=== PATIENT | male | born 1935 | race Caucasian/White ===

== ENCOUNTER 2023-09-12 17:32 | Inpatient (IN) | payer MEDICARE, BC, OTHER ==
[~2023-09-12] VITALS: Ht 167.6 cm; Wt 87.5 kg
[2023-09-12] MEDS ORDERED: ACETAMINOPHEN 650 MG/SUPP.RECT RC ONE ×2 (18:30)
[2023-09-12] MEDS ORDERED: IV LR 1000 ML 1,000 ML BAG IV ONE (18:30)
[2023-09-12] MEDS ORDERED: PIPERACILLIN /TAZOBACTAM 3.375 G in IV D5W 50 ML IV ONE (18:30)
[2023-09-12] MEDS ORDERED: VANCOMYCIN 1 GM in IV D5W 250 ML IV ONE (18:30)
[2023-09-12 18:50] LABS: APPEARANCE,URINE TURBID (CLEAR); BILIRUBIN,URINE NEGATIVE (NEGATIVE); BLOOD, URINE 3+ Ery/uL (NEGATIVE); COLOR,URINE YELLOW (YELLOW); KETONES,URINE 1+ mg/dL (NEGATIVE); LEUKOCYTE ESTERASE ,URINE 2+ (NEGATIVE); NITRITE, URINE POSITIVE (NEGATIVE); PH,URINE 6.5 (5.0-8.0); PROTEIN,URINE 2+ mg/dl (NEGATIVE); UGLUCOSE NEGATIVE (NEGATIVE)
[2023-09-12 18:53] LABS: BASOPHILS % (AUTO) 0.2 % (0.0-2.0); EOSINOPHILS % (AUTO) 0.3 % (0.0-6.0); HEMATOCRIT 39 % (39-51); HEMOGLOBIN 12.4 g/dL (13.5-17.5); LYMPHOCYTES # (AUTO) 0.4 K/uL (0.8-4.8); LYMPHOCYTES % (AUTO) 3.6 % (20.0-44.0); MEAN CORPUSCULAR HEMOGLOBIN 28 PG (26.0-33.0); MEAN CORPUSCULAR HGB CONC 32 g/dl (31.0-36.0); MEAN CORPUSCULAR VOLUME 86 fL (80-96); MONOCYTES # (AUTO) 0.5 K/uL (0.1-1.30); MONOCYTES % (AUTO) 3.9 % (2.0-12.0); NEUTROPHILS # (AUTO) 10.9 K/uL (1.8-8.9); PLATELET COUNT (AUTO) 114 K/uL (150-450); RED BLOOD CELL COUNT(AUTO) 4.52 MIL/uL (4.5-6.0); RED CELL DISTRIBUTION WIDTH 27.2 % (11.5-15.0); WHITE BLOOD COUNT (AUTO) 11.8 K/uL (4.3-11.0)
[2023-09-12 19:03] LABS: CALCIUM, SERUM 8.7 mg/dL (8.5-10.1); CARBON DIOXIDE 21 mmol/L (21-32); CHLORIDE 107 mmol/L (98-107); CREATININE 1.2 mg/dL (0.6-1.3); GLUCOSE 147 mg/dL (74-106); POTASSIUM 4.3 mmol/L (3.5-5.1); SODIUM SERUM 138 mmol/L (136-145); UREA NITROGEN, BLOOD 21 mg/dL (7-18)
[2023-09-12 19:09] LABS: ALANINE AMINOTRANSFERASE 45 U/L (12-78); ALBUMIN 1.8 g/dL (3.4-5.0); ALKALINE PHOSPHATASE 189 U/L (46-116); ASPARTATE AMINOTRANSFERASE 86 U/L (15-37); BILIRUBIN,DIRECT 1.1 mg/dL (0.0-0.2); BILIRUBIN,TOTAL 2.1 mg/dL (0.2-1.0); TOTAL PROTEIN, SERUM 8.1 g/dL (6.4-8.2)
[2023-09-12 19:10] LABS: INR 1.63 (0.91-1.10); PARTIAL THROMBOPLASTIN TIME 39.3 SEC (24.3-34.3); PROTHROMBIN TIME 16.7 SECS (9.2-11.1)
[2023-09-12 19:28] LABS: LACTIC ACID 3.8 mmol/L (0.4-2.0)
[2023-09-12 19:53] LABS: ADD URINE CULTURE YES; BACTERIA,URINE 3+ /HPF (None Seen); MUCUS,URINE Many /LPF (None Seen); RBC,URINE TOO NUMEROUS TO COUN /HPF (0-2); SQUAMOUS EPITHELIAL CELL,UR None Seen /HPF (None Seen); WBC,URINE TOO NUMEROUS TO COUN /HPF (0-3)
[2023-09-12] MEDS ORDERED: IV LR 500 ML IV ONE (21:00)
[2023-09-12] MEDS ORDERED: MAGNESIUM HYDROXIDE 30 ML UDC PO PRN (22:00)
[2023-09-12] MEDS ORDERED: ONDANSETRON HCL/PF 4 MG/2 ML VIAL IVP PRN (22:00)
[2023-09-12] MEDS ORDERED: Z GUARD REMEDY 4 OZ OINT TP PRN (22:00)
[2023-09-12] MEDS ORDERED: ZOLPIDEM TARTRATE 5 MG TABLET PO PRN (22:00)
[2023-09-12] MEDS ORDERED: MAG HYDROX/AL HYDROX/SIMETH 30 ML UDC PO PRN (22:00)
[2023-09-12] MEDS ORDERED: PHENYLEPHRINE 10 MG/ML VIAL ONE (22:21)
[2023-09-12 23:30] VITALS: BP 76/50; O2SAT 97
[2023-09-12] MEDS: IV NS 0.9% 1,000 ML IV PRN (23:30)
[2023-09-12 23:39] VITALS: BP 84/52; O2SAT 97
[2023-09-12 23:42] VITALS: BP 86/53; O2SAT 98
[2023-09-12 23:45] VITALS: BP 86/54; O2SAT 97
[2023-09-12 23:48] VITALS: BP 88/55
[2023-09-12] MEDS: PHENYLEPHRINE 100 MG in IV NS 0.9% 240 ML IV PRN (23:48)
[2023-09-13] VITALS (92 sets, daily range): BP systolic 93–131; BP diastolic 50–83; TEMP 97.1–97.9; O2SAT 82–100
[2023-09-13] MEDS ORDERED: PIPERACILLIN /TAZOBACTAM 3.375 G in IV D5W 50 ML IV SCH ×2 (02:00→08:00)
[2023-09-13] MEDS ORDERED: PIPERACI/TAZO 3.375GM/D5W 50ML PB IV ONE (02:04)
[2023-09-13 05:36] LABS: BASOPHILS % (AUTO) 0.1 % (0.0-2.0); HEMATOCRIT 35 % (39-51); HEMOGLOBIN 11.2 g/dL (13.5-17.5); LYMPHOCYTES # (AUTO) 0.5 K/uL (0.8-4.8); LYMPHOCYTES % (AUTO) 2.5 % (20.0-44.0); MEAN CORPUSCULAR HEMOGLOBIN 28 PG (26.0-33.0); MEAN CORPUSCULAR HGB CONC 32 g/dl (31.0-36.0); MEAN CORPUSCULAR VOLUME 87 fL (80-96); MONOCYTES % (AUTO) 9.5 % (2.0-12.0); NEUTROPHILS # (AUTO) 18.3 K/uL (1.8-8.9); NEUTROPHILS % (AUTO) 87.9 % (43.0-81.0); PLATELET COUNT (AUTO) 107 K/uL (150-450); RED BLOOD CELL COUNT(AUTO) 4.04 MIL/uL (4.5-6.0); RED CELL DISTRIBUTION WIDTH 27.4 % (11.5-15.0); WHITE BLOOD COUNT (AUTO) 20.8 K/uL (4.3-11.0)
[2023-09-13 06:05] LABS: BAND % (MANUAL) 7 % (0.0-5.0); CALCIUM, SERUM 8.3 mg/dL (8.5-10.1); LYMPHOCYTES % (MANUAL) 4 % (16-48); MONOCYTES % (MANUAL) 6 % (0-11.0); NEUTROPHILS % (MANUAL) 83 (42-76); PHOSPHORUS 2.9 mg/dL (2.5-4.9); PLATELET ESTIMATE DECREASED; POTASSIUM 3.3 mmol/L (3.5-5.1)
[2023-09-13 06:06] LABS: ANISOCYTOSIS 1+; OVALOCYTES 1+
[2023-09-13] MEDS ORDERED: DIVA500T2 PO (06:27)
[2023-09-13] MEDS ORDERED: FURO-145 PO (06:27)
[2023-09-13] MEDS ORDERED: HALO2TAB PO (06:27)
[2023-09-13] MEDS ORDERED: METO25TA3 PO (06:27)
[2023-09-13] MEDS ORDERED: ASPI-1169 PO (06:27)
[2023-09-13] MEDS ORDERED: PANT40TA49 PO (06:27)
[2023-09-13] MEDS ORDERED: SENN1TAB6 PO (06:27)
[2023-09-13] MEDS ORDERED: ATOR10TA PO (06:27)
[2023-09-13] MEDS: IV NS 0.9% 1,000 ML IV PRN ×2 (10:02→20:35)
[2023-09-13] MEDS: PIPERACILLIN /TAZOBACTAM 3.375 G in IV D5W 100 ML IV SCH ×2 (10:49→20:36)
[2023-09-13] MEDS ORDERED: POTASSIUM CHLORIDE 20 MEQ TAB.PRT.SR PO SCH (11:00)
[2023-09-13] MEDS: ASPIRIN 81 MG TAB.CHEW PO SCH (13:35)
[2023-09-13] MEDS ORDERED: VANCOMYCIN HCL 0.75 GM in IV D5W 250 ML IV SCH (19:00)
[2023-09-14] VITALS (96 sets, daily range): BP systolic 88–135; BP diastolic 49–100; TEMP 98–98.7; O2SAT 95–99
[2023-09-14] MEDS: PHENYLEPHRINE 100 MG in IV NS 0.9% 240 ML IV PRN (03:01)
[2023-09-14 05:10] LABS: CALCIUM, SERUM 8.2 mg/dL (8.5-10.1); CREATININE 0.7 mg/dL (0.6-1.3); POTASSIUM 4.4 mmol/L (3.5-5.1)
[2023-09-14] MEDS: IV NS 0.9% 1,000 ML IV PRN ×2 (06:17→17:13)
[2023-09-14] MEDS: PIPERACILLIN /TAZOBACTAM 3.375 G in IV D5W 100 ML IV SCH ×2 (10:02→20:09)
[2023-09-14] MEDS: ASPIRIN 81 MG TAB.CHEW PO SCH (10:02)
[2023-09-14 14:59] LABS: HIV-1 p24 ANTIGEN NON REACTIVE (NONREACTIVE); HIV-1/2 ANTIBODY NON REACTIVE (NONREACTIVE)
[2023-09-14 15:40] LABS: BASOPHILS % (AUTO) 0.2 % (0.0-2.0); EOSINOPHILS # (AUTO) 0.1 K/uL (0.0-0.7); EOSINOPHILS % (AUTO) 0.4 % (0.0-6.0); HEMATOCRIT 41 % (39-51); HEMOGLOBIN 12.2 g/dL (13.5-17.5); LYMPHOCYTES # (AUTO) 1.1 K/uL (0.8-4.8); LYMPHOCYTES % (AUTO) 7.3 % (20.0-44.0); MEAN CORPUSCULAR HEMOGLOBIN 28 PG (26.0-33.0); MEAN CORPUSCULAR HGB CONC 30 g/dl (31.0-36.0); MEAN CORPUSCULAR VOLUME 92 fL (80-96); MONOCYTES # (AUTO) 2.1 K/uL (0.1-1.30); MONOCYTES % (AUTO) 13.6 % (2.0-12.0); NEUTROPHILS # (AUTO) 12.1 K/uL (1.8-8.9); NEUTROPHILS % (AUTO) 78.5 % (43.0-81.0); PLATELET COUNT (AUTO) 89 K/uL (150-450); RED BLOOD CELL COUNT(AUTO) 4.41 MIL/uL (4.5-6.0); RED CELL DISTRIBUTION WIDTH 28.2 % (11.5-15.0); WHITE BLOOD COUNT (AUTO) 15.4 K/uL (4.3-11.0)
[2023-09-14 15:48] LABS: CREATININE, URINE 92.3 MG/DL (30.0-125.0); URINE TOTAL PROTEIN 71.9 mg/dL (0-11.9)
[2023-09-14 15:52] LABS: APPEARANCE,URINE CLOUDY (CLEAR); BILIRUBIN,URINE 1+ (NEGATIVE); BLOOD, URINE 3+ Ery/uL (NEGATIVE); COLOR,URINE YELLOW (YELLOW); KETONES,URINE NEGATIVE (NEGATIVE); LEUKOCYTE ESTERASE ,URINE 2+ (NEGATIVE); NITRITE, URINE POSITIVE (NEGATIVE); PH,URINE 5.5 (5.0-8.0); PROTEIN,URINE 1+ mg/dl (NEGATIVE); UGLUCOSE NEGATIVE (NEGATIVE)
[2023-09-14 16:26] LABS: ADD URINE CULTURE YES; BACTERIA,URINE 3+ /HPF (None Seen); MUCUS,URINE Many /LPF (None Seen); RBC,URINE 51-80 /HPF (0-2); SQUAMOUS EPITHELIAL CELL,UR 0-2 /HPF (None Seen); WBC,URINE 21-50 /HPF (0-3)
[2023-09-14 16:35] LABS: EOSINOPHIL,URINE None Seen
[2023-09-14] MEDS: SENNOSIDES/DOCUSATE SODIUM 1 TAB TABLET PO SCH (17:13)
[2023-09-14] MEDS: DIVALPROEX SODIUM 500 MG TABLET.DR PO SCH (17:14)
[2023-09-14] MEDS: ATORVASTATIN 10 MG TABLET PO SCH (17:14)
[2023-09-14] MEDS: VANCOMYCIN 1 GM in IV D5W 250ml IV SCH (17:14)
[2023-09-14] MEDS: PROSOURCE / PROSTAT (PYXIS) 30 ML UDC PO SCH ×2 (17:14→17:15)
[2023-09-14] MEDS: MUPIROCIN OINT 2% 22 GM TUBE NS SCH (20:09)
[2023-09-14 23:20] LABS: BAND % (MANUAL) 9 % (0.0-5.0); LYMPHOCYTES % (MANUAL) 10 % (16-48); NEUTROPHILS % (MANUAL) 68 (42-76)
[2023-09-14 23:21] LABS: ANISOCYTOSIS 1+; BASOPHILS % (MANUAL) 0 % (0.0-2.0); EOSINOPHILS % (MANUAL) 0 % (0-4); MONOCYTES % (MANUAL) 13 % (0-11.0); OVALOCYTES 1+; PLATELET ESTIMATE DECREASED
[2023-09-15] VITALS (96 sets, daily range): BP systolic 76–155; BP diastolic 49–91; TEMP 97.5–98.1; O2SAT 92–99
[2023-09-15] MEDS: IV NS 0.9% 1,000 ML IV PRN ×2 (03:38→13:28)
[2023-09-15 04:51] LABS: CREATININE 0.8 mg/dL (0.6-1.3); POTASSIUM 3.5 mmol/L (3.5-5.1)
[2023-09-15] MEDS: PIPERACILLIN /TAZOBACTAM 3.375 G in IV D5W 100 ML IV SCH ×2 (05:00→12:33)
[2023-09-15] MEDS: ASPIRIN 81 MG TAB.CHEW PO SCH (08:50)
[2023-09-15] MEDS: PROSOURCE / PROSTAT (PYXIS) 30 ML UDC PO SCH ×3 (08:50→17:49)
[2023-09-15] MEDS: DIVALPROEX SODIUM 500 MG TABLET.DR PO SCH ×2 (08:50→17:49)
[2023-09-15] MEDS: SENNOSIDES/DOCUSATE SODIUM 1 TAB TABLET PO SCH ×2 (08:50→17:49)
[2023-09-15] MEDS: PANTOPRAZOLE 40 MG TABLET.DR PO SCH (08:50)
[2023-09-15] MEDS: MUPIROCIN OINT 2% 22 GM TUBE NS SCH ×2 (08:51→21:20)
[2023-09-15] MEDS ORDERED: METOPROLOL SUCCINATE 25 MG TAB.SR.24H PO SCH (09:00)
[2023-09-15] MEDS ORDERED: ASPIRIN 81 MG TAB.CHEW PO SCH (09:00)
[2023-09-15] MEDS: BACITRACIN ZINC OINT (15 GM) 15 GM TUBE TP SCH ×2 (09:10→17:46)
[2023-09-15] MEDS: PHENYLEPHRINE 100 MG in IV NS 0.9% 240 ML IV PRN (12:15)
[2023-09-15] MEDS: ATORVASTATIN 10 MG TABLET PO SCH (18:08)
[2023-09-15] MEDS: VANCOMYCIN 1 GM in IV D5W 250ml IV SCH (19:40)
[2023-09-15] MEDS: IV NS 0.9% 250 ML IV PRN (20:43)
[2023-09-16] VITALS (90 sets, daily range): BP systolic 88–125; BP diastolic 53–90; TEMP 97.5–98.6; O2SAT 95–99
[2023-09-16] MEDS: IV NS 0.9% 1,000 ML IV PRN ×3 (00:04→21:36)
[2023-09-16 04:16] LABS: CALCIUM, SERUM 7.9 mg/dL (8.5-10.1); CREATININE 0.7 mg/dL (0.6-1.3); POTASSIUM 3.7 mmol/L (3.5-5.1)
[2023-09-16] MEDS: VANCOMYCIN HCL 0.75 GM in IV D5W 250 ML IV SCH ×2 (06:33→17:20)
[2023-09-16] MEDS: PROSOURCE / PROSTAT (PYXIS) 30 ML UDC PO SCH ×3 (08:00→17:18)
[2023-09-16] MEDS: PANTOPRAZOLE 40 MG TABLET.DR PO SCH (08:28)
[2023-09-16] MEDS: SENNOSIDES/DOCUSATE SODIUM 1 TAB TABLET PO SCH ×2 (08:28→17:18)
[2023-09-16] MEDS: ASPIRIN 81 MG TAB.CHEW PO SCH (08:28)
[2023-09-16] MEDS: DIVALPROEX SODIUM 500 MG TABLET.DR PO SCH ×2 (08:28→17:18)
[2023-09-16] MEDS: MUPIROCIN OINT 2% 22 GM TUBE NS SCH ×2 (09:13→21:44)
[2023-09-16] MEDS: BACITRACIN ZINC OINT (15 GM) 15 GM TUBE TP SCH ×4 (09:13→21:38)
[2023-09-16] MEDS: PHENYLEPHRINE 100 MG in IV NS 0.9% 240 ML IV PRN (09:15)
[2023-09-16 09:34] LABS: BASOPHILS # (AUTO) 0.1 K/uL (0.0-0.2); BASOPHILS % (AUTO) 0.5 % (0.0-2.0); EOSINOPHILS # (AUTO) 0.1 K/uL (0.0-0.7); EOSINOPHILS % (AUTO) 0.6 % (0.0-6.0); HEMATOCRIT 35 % (39-51); LYMPHOCYTES # (AUTO) 1.6 K/uL (0.8-4.8); LYMPHOCYTES % (AUTO) 12.5 % (20.0-44.0); MEAN CORPUSCULAR HEMOGLOBIN 27 PG (26.0-33.0); MEAN CORPUSCULAR HGB CONC 31 g/dl (31.0-36.0); MEAN CORPUSCULAR VOLUME 86 fL (80-96); MONOCYTES # (AUTO) 1.1 K/uL (0.1-1.30); MONOCYTES % (AUTO) 8.8 % (2.0-12.0); NEUTROPHILS % (AUTO) 77.6 % (43.0-81.0); PLATELET COUNT (AUTO) 89 K/uL (150-450); RED BLOOD CELL COUNT(AUTO) 4.07 MIL/uL (4.5-6.0); RED CELL DISTRIBUTION WIDTH 27.1 % (11.5-15.0); WHITE BLOOD COUNT (AUTO) 12.9 K/uL (4.3-11.0)
[2023-09-16 09:37] LABS: CREATININE 0.7 mg/dL (0.6-1.3); POTASSIUM 3.6 mmol/L (3.5-5.1)
[2023-09-16 09:43] LABS: TOTAL PROTEIN, SERUM 6.1 g/dL (6.4-8.2)
[2023-09-16 09:51] LABS: ALBUMIN 1.2 g/dL (3.4-5.0)
[2023-09-16 15:32] LABS: LYMPHOCYTES % (MANUAL) 12 % (16-48); MONOCYTES % (MANUAL) 2 % (0-11.0); MYELOCYTES % 4 % (0-0); NEUTROPHILS % (MANUAL) 82 (42-76); PLATELET ESTIMATE DECREASED
[2023-09-16 15:33] LABS: ANISOCYTOSIS 1+; OVALOCYTES 1+
[2023-09-16] MEDS: ATORVASTATIN 10 MG TABLET PO SCH (17:18)
[2023-09-17] VITALS (86 sets, daily range): BP systolic 87–177; BP diastolic 29–154; TEMP 97–98.2; O2SAT 95–99
[2023-09-17 06:27] LABS: BASOPHILS # (AUTO) 0.1 K/uL (0.0-0.2); BASOPHILS % (AUTO) 0.5 % (0.0-2.0); EOSINOPHILS # (AUTO) 0.1 K/uL (0.0-0.7); EOSINOPHILS % (AUTO) 0.6 % (0.0-6.0); HEMATOCRIT 39 % (39-51); HEMOGLOBIN 12.1 g/dL (13.5-17.5); LYMPHOCYTES # (AUTO) 1.4 K/uL (0.8-4.8); LYMPHOCYTES % (AUTO) 12.7 % (20.0-44.0); MEAN CORPUSCULAR HEMOGLOBIN 27 PG (26.0-33.0); MEAN CORPUSCULAR HGB CONC 31 g/dl (31.0-36.0); MEAN CORPUSCULAR VOLUME 87 fL (80-96); MONOCYTES # (AUTO) 0.9 K/uL (0.1-1.30); MONOCYTES % (AUTO) 8.4 % (2.0-12.0); NEUTROPHILS # (AUTO) 8.6 K/uL (1.8-8.9); NEUTROPHILS % (AUTO) 77.8 % (43.0-81.0); PLATELET COUNT (AUTO) 114 K/uL (150-450); RED BLOOD CELL COUNT(AUTO) 4.47 MIL/uL (4.5-6.0); RED CELL DISTRIBUTION WIDTH 27.1 % (11.5-15.0); WHITE BLOOD COUNT (AUTO) 11.1 K/uL (4.3-11.0)
[2023-09-17 06:50] LABS: BILIRUBIN,TOTAL 1.1 mg/dL (0.2-1.0); CALCIUM, SERUM 8.2 mg/dL (8.5-10.1); CREATININE 0.7 mg/dL (0.6-1.3); POTASSIUM 3.9 mmol/L (3.5-5.1); TOTAL PROTEIN, SERUM 6.6 g/dL (6.4-8.2)
[2023-09-17 06:54] LABS: ALBUMIN 1.2 g/dL (3.4-5.0)
[2023-09-17] MEDS: VANCOMYCIN HCL 0.75 GM in IV D5W 250 ML IV SCH (07:14)
[2023-09-17] MEDS: PROSOURCE / PROSTAT (PYXIS) 30 ML UDC PO SCH ×3 (08:41→17:33)
[2023-09-17] MEDS: ASPIRIN 81 MG TAB.CHEW PO SCH (08:42)
[2023-09-17] MEDS: MUPIROCIN OINT 2% 22 GM TUBE NS SCH ×2 (08:42→20:44)
[2023-09-17] MEDS: DIVALPROEX SODIUM 500 MG TABLET.DR PO SCH ×2 (08:42→17:33)
[2023-09-17] MEDS: PANTOPRAZOLE 40 MG TABLET.DR PO SCH (08:42)
[2023-09-17] MEDS: SENNOSIDES/DOCUSATE SODIUM 1 TAB TABLET PO SCH ×2 (08:42→17:33)
[2023-09-17] MEDS: IV NS 0.9% 250 ML IV PRN (09:14)
[2023-09-17] MEDS: IV NS 0.9% 1,000 ML IV PRN ×2 (09:14→20:44)
[2023-09-17] MEDS: PHENYLEPHRINE 100 MG in IV NS 0.9% 240 ML IV PRN (09:42)
[2023-09-17] MEDS: ATORVASTATIN 10 MG TABLET PO SCH (17:33)
[2023-09-17] MEDS: VANCOMYCIN 500 MG in IV D5W 100ml IV SCH (17:34)
[2023-09-18] VITALS (79 sets, daily range): BP systolic 87–163; BP diastolic 46–98; TEMP 97.5–98.4; O2SAT 93–99
[2023-09-18 04:34] LABS: BASOPHILS # (AUTO) 0.1 K/uL (0.0-0.2); BASOPHILS % (AUTO) 0.6 % (0.0-2.0); EOSINOPHILS # (AUTO) 0.1 K/uL (0.0-0.7); EOSINOPHILS % (AUTO) 1.3 % (0.0-6.0); HEMATOCRIT 35 % (39-51); HEMOGLOBIN 11.5 g/dL (13.5-17.5); LYMPHOCYTES # (AUTO) 1.2 K/uL (0.8-4.8); LYMPHOCYTES % (AUTO) 14.1 % (20.0-44.0); MEAN CORPUSCULAR HEMOGLOBIN 28 PG (26.0-33.0); MEAN CORPUSCULAR HGB CONC 33 g/dl (31.0-36.0); MEAN CORPUSCULAR VOLUME 85 fL (80-96); MONOCYTES # (AUTO) 0.7 K/uL (0.1-1.30); MONOCYTES % (AUTO) 8.5 % (2.0-12.0); NEUTROPHILS # (AUTO) 6.5 K/uL (1.8-8.9); NEUTROPHILS % (AUTO) 75.5 % (43.0-81.0); PLATELET COUNT (AUTO) 116 K/uL (150-450); RED BLOOD CELL COUNT(AUTO) 4.13 MIL/uL (4.5-6.0); RED CELL DISTRIBUTION WIDTH 26.8 % (11.5-15.0); WHITE BLOOD COUNT (AUTO) 8.7 K/uL (4.3-11.0)
[2023-09-18 05:22] LABS: CALCIUM, SERUM 8.1 mg/dL (8.5-10.1); CREATININE 0.7 mg/dL (0.6-1.3); POTASSIUM 3.6 mmol/L (3.5-5.1)
[2023-09-18 05:28] LABS: BILIRUBIN,TOTAL 0.8 mg/dL (0.2-1.0); TOTAL PROTEIN, SERUM 6.3 g/dL (6.4-8.2)
[2023-09-18 05:35] LABS: ALBUMIN 1.2 g/dL (3.4-5.0)
[2023-09-18] MEDS: VANCOMYCIN 500 MG in IV D5W 100ml IV SCH ×2 (05:59→18:07)
[2023-09-18] MEDS: IV NS 0.9% 1,000 ML IV PRN ×2 (06:02→16:18)
[2023-09-18] MEDS: SENNOSIDES/DOCUSATE SODIUM 1 TAB TABLET PO SCH ×2 (08:09→18:07)
[2023-09-18] MEDS: ASPIRIN 81 MG TAB.CHEW PO SCH (08:09)
[2023-09-18] MEDS: PROSOURCE / PROSTAT (PYXIS) 30 ML UDC PO SCH ×3 (08:09→17:00)
[2023-09-18] MEDS: DIVALPROEX SODIUM 500 MG TABLET.DR PO SCH ×2 (08:09→18:07)
[2023-09-18] MEDS: PANTOPRAZOLE 40 MG TABLET.DR PO SCH (08:09)
[2023-09-18] MEDS: BACITRACIN ZINC OINT (15 GM) 15 GM TUBE TP SCH ×2 (08:10→17:00)
[2023-09-18] MEDS: MUPIROCIN OINT 2% 22 GM TUBE NS SCH ×2 (08:10→21:28)
[2023-09-18] MEDS ORDERED: MIDODRINE HCL (5MG) 5 MG TABLET PO SCH (13:00)
[2023-09-18] MEDS: ATORVASTATIN 10 MG TABLET PO SCH (18:07)
[2023-09-18] MEDS: PHENYLEPHRINE 100 MG in IV NS 0.9% 240 ML IV PRN (18:08)
[2023-09-18] MEDS: MIDODRINE HCL (5MG) 5 MG TABLET PO SCH (21:00)
[2023-09-19] VITALS (74 sets, daily range): BP systolic 95–139; BP diastolic 56–92; TEMP 97.1–97.7; O2SAT 93–100
[2023-09-19] MEDS: IV NS 0.9% 1,000 ML IV PRN ×3 (00:38→20:15)
[2023-09-19] MEDS: MIDODRINE HCL (5MG) 5 MG TABLET PO SCH ×3 (05:22→20:38)
[2023-09-19 05:23] LABS: BASOPHILS % (AUTO) 0.3 % (0.0-2.0); EOSINOPHILS % (AUTO) 0.4 % (0.0-6.0); HEMATOCRIT 37 % (39-51); HEMOGLOBIN 11.9 g/dL (13.5-17.5); LYMPHOCYTES # (AUTO) 0.8 K/uL (0.8-4.8); LYMPHOCYTES % (AUTO) 8.6 % (20.0-44.0); MEAN CORPUSCULAR HEMOGLOBIN 28 PG (26.0-33.0); MEAN CORPUSCULAR HGB CONC 32 g/dl (31.0-36.0); MEAN CORPUSCULAR VOLUME 86 fL (80-96); MONOCYTES # (AUTO) 0.6 K/uL (0.1-1.30); MONOCYTES % (AUTO) 6.8 % (2.0-12.0); NEUTROPHILS # (AUTO) 7.6 K/uL (1.8-8.9); NEUTROPHILS % (AUTO) 83.9 % (43.0-81.0); PLATELET COUNT (AUTO) 114 K/uL (150-450); RED BLOOD CELL COUNT(AUTO) 4.28 MIL/uL (4.5-6.0); RED CELL DISTRIBUTION WIDTH 27.1 % (11.5-15.0)
[2023-09-19 05:44] LABS: BILIRUBIN,TOTAL 0.9 mg/dL (0.2-1.0); CALCIUM, SERUM 7.9 mg/dL (8.5-10.1); CREATININE 0.8 mg/dL (0.6-1.3); POTASSIUM 3.8 mmol/L (3.5-5.1); TOTAL PROTEIN, SERUM 6.8 g/dL (6.4-8.2)
[2023-09-19 05:54] LABS: ALBUMIN 1.2 g/dL (3.4-5.0)
[2023-09-19] MEDS: VANCOMYCIN 500 MG in IV D5W 100ml IV SCH (06:00)
[2023-09-19] MEDS: PANTOPRAZOLE 40 MG TABLET.DR PO SCH (08:54)
[2023-09-19] MEDS: ASPIRIN 81 MG TAB.CHEW PO SCH (08:54)
[2023-09-19] MEDS: BACITRACIN ZINC OINT (15 GM) 15 GM TUBE TP SCH ×2 (08:54→17:08)
[2023-09-19] MEDS: DIVALPROEX SODIUM 500 MG TABLET.DR PO SCH ×2 (08:54→17:08)
[2023-09-19] MEDS: SENNOSIDES/DOCUSATE SODIUM 1 TAB TABLET PO SCH ×2 (08:54→17:08)
[2023-09-19] MEDS: PROSOURCE / PROSTAT (PYXIS) 30 ML UDC PO SCH ×3 (08:55→17:08)
[2023-09-19] MEDS: MUPIROCIN OINT 2% 22 GM TUBE NS SCH ×2 (08:55→20:39)
[2023-09-19] MEDS: ATORVASTATIN 10 MG TABLET PO SCH (17:08)
[2023-09-20] VITALS (79 sets, daily range): BP systolic 95–133; BP diastolic 53–100; TEMP 97.1–97.9; O2SAT 92–98
[2023-09-20] MEDS: MIDODRINE HCL (5MG) 5 MG TABLET PO SCH ×4 (05:29→21:21)
[2023-09-20] MEDS: VANCOMYCIN HCL 0.75 GM in IV D5W 250 ML IV SCH (05:32)
[2023-09-20 05:42] LABS: HEMATOCRIT 36 % (39-51); HEMOGLOBIN 11.5 g/dL (13.5-17.5); LYMPHOCYTES # (AUTO) 0.9 K/uL (0.8-4.8); LYMPHOCYTES % (AUTO) 10.5 % (20.0-44.0); MEAN CORPUSCULAR HEMOGLOBIN 28 PG (26.0-33.0); MEAN CORPUSCULAR HGB CONC 32 g/dl (31.0-36.0); MEAN CORPUSCULAR VOLUME 87 fL (80-96); MONOCYTES # (AUTO) 6.1 K/uL (0.1-1.30); MONOCYTES % (AUTO) 69.3 % (2.0-12.0); NEUTROPHILS # (AUTO) 1.8 K/uL (1.8-8.9); NEUTROPHILS % (AUTO) 20.2 % (43.0-81.0); PLATELET COUNT (AUTO) 99 K/uL (150-450); WHITE BLOOD COUNT (AUTO) 8.8 K/uL (4.3-11.0)
[2023-09-20] MEDS: IV NS 0.9% 250 ML IV PRN (05:43)
[2023-09-20 05:59] LABS: BILIRUBIN,TOTAL 0.8 mg/dL (0.2-1.0); CALCIUM, SERUM 8.2 mg/dL (8.5-10.1); CREATININE 0.8 mg/dL (0.6-1.3); POTASSIUM 3.7 mmol/L (3.5-5.1); TOTAL PROTEIN, SERUM 6.8 g/dL (6.4-8.2)
[2023-09-20 06:05] LABS: ALBUMIN 1.2 g/dL (3.4-5.0)
[2023-09-20] MEDS: IV NS 0.9% 1,000 ML IV PRN ×2 (07:25→18:26)
[2023-09-20] MEDS: ASPIRIN 81 MG TAB.CHEW PO SCH (08:46)
[2023-09-20] MEDS: SENNOSIDES/DOCUSATE SODIUM 1 TAB TABLET PO SCH ×2 (08:46→17:09)
[2023-09-20] MEDS: DIVALPROEX SODIUM 500 MG TABLET.DR PO SCH ×2 (08:46→17:09)
[2023-09-20] MEDS: PROSOURCE / PROSTAT (PYXIS) 30 ML UDC PO SCH ×3 (08:47→17:12)
[2023-09-20] MEDS: MUPIROCIN OINT 2% 22 GM TUBE NS SCH ×2 (08:49→21:26)
[2023-09-20] MEDS: PANTOPRAZOLE 40 MG TABLET.DR PO SCH (08:49)
[2023-09-20] MEDS: BACITRACIN ZINC OINT (15 GM) 15 GM TUBE TP SCH ×2 (09:03→17:11)
[2023-09-20] MEDS: ATORVASTATIN 10 MG TABLET PO SCH (17:09)
[2023-09-21] VITALS (41 sets, daily range): BP systolic 40–131; BP diastolic 32–80; TEMP 97.6–98.4; O2SAT 93–98
[2023-09-21 04:49] LABS: BASOPHILS % (AUTO) 0.2 % (0.0-2.0); EOSINOPHILS # (AUTO) 0.1 K/uL (0.0-0.7); HEMATOCRIT 35 % (39-51); HEMOGLOBIN 11.5 g/dL (13.5-17.5); LYMPHOCYTES # (AUTO) 0.7 K/uL (0.8-4.8); MEAN CORPUSCULAR HEMOGLOBIN 28 PG (26.0-33.0); MEAN CORPUSCULAR HGB CONC 33 g/dl (31.0-36.0); RED BLOOD CELL COUNT(AUTO) 4.11 MIL/uL (4.5-6.0)
[2023-09-21] MEDS: MIDODRINE HCL (5MG) 5 MG TABLET PO SCH ×4 (05:21→21:04)
[2023-09-21 05:22] LABS: EOSINOPHILS % (AUTO) 0.7 % (0.0-6.0); LYMPHOCYTES % (AUTO) 7.6 % (20.0-44.0); MEAN CORPUSCULAR VOLUME 85 fL (80-96); MONOCYTES # (AUTO) 0.5 K/uL (0.1-1.30); MONOCYTES % (AUTO) 5.4 % (2.0-12.0); NEUTROPHILS # (AUTO) 8.2 K/uL (1.8-8.9); NEUTROPHILS % (AUTO) 86.1 % (43.0-81.0); PLATELET COUNT (AUTO) 126 K/uL (150-450); RED CELL DISTRIBUTION WIDTH 27.3 % (11.5-15.0); WHITE BLOOD COUNT (AUTO) 9.6 K/uL (4.3-11.0)
[2023-09-21] MEDS: VANCOMYCIN HCL 0.75 GM in IV D5W 250 ML IV SCH (05:32)
[2023-09-21 06:28] LABS: BILIRUBIN,TOTAL 0.8 mg/dL (0.2-1.0); CALCIUM, SERUM 8.6 mg/dL (8.5-10.1); CREATININE 0.8 mg/dL (0.6-1.3); POTASSIUM 3.8 mmol/L (3.5-5.1); TOTAL PROTEIN, SERUM 6.8 g/dL (6.4-8.2)
[2023-09-21 06:56] LABS: ALBUMIN 1.2 g/dL (3.4-5.0)
[2023-09-21] MEDS: DIVALPROEX SODIUM 500 MG TABLET.DR PO SCH ×2 (08:38→17:48)
[2023-09-21] MEDS: ASPIRIN 81 MG TAB.CHEW PO SCH (08:38)
[2023-09-21] MEDS: PANTOPRAZOLE 40 MG TABLET.DR PO SCH (08:38)
[2023-09-21] MEDS: SENNOSIDES/DOCUSATE SODIUM 1 TAB TABLET PO SCH ×2 (08:38→17:48)
[2023-09-21] MEDS: MUPIROCIN OINT 2% 22 GM TUBE NS SCH (08:41)
[2023-09-21] MEDS: BACITRACIN ZINC OINT (15 GM) 15 GM TUBE TP SCH ×2 (08:43→17:48)
[2023-09-21] MEDS: PROSOURCE / PROSTAT (PYXIS) 30 ML UDC PO SCH ×3 (08:44→17:49)
[2023-09-21] MEDS: IV NS 0.9% 1,000 ML IV PRN (13:41)
[2023-09-21] MEDS: ATORVASTATIN 10 MG TABLET PO SCH (17:48)
[2023-09-22] VITALS (7 sets, daily range): BP systolic 101–139; BP diastolic 60–78; TEMP 97.7–98.6; O2SAT 96–100
[2023-09-22] MEDS: MIDODRINE HCL (5MG) 5 MG TABLET PO SCH ×3 (04:15→22:09)
[2023-09-22] MEDS: IV NS 0.9% 1,000 ML IV PRN ×2 (04:48→17:45)
[2023-09-22] MEDS: VANCOMYCIN HCL 0.75 GM in IV D5W 250 ML IV SCH (05:09)
[2023-09-22] MEDS: PROSOURCE / PROSTAT (PYXIS) 30 ML UDC PO SCH ×3 (08:00→17:00)
[2023-09-22] MEDS: SENNOSIDES/DOCUSATE SODIUM 1 TAB TABLET PO SCH ×2 (09:00→17:00)
[2023-09-22] MEDS: PANTOPRAZOLE 40 MG TABLET.DR PO SCH (09:00)
[2023-09-22] MEDS: ASPIRIN 81 MG TAB.CHEW PO SCH (09:00)
[2023-09-22] MEDS: DIVALPROEX SODIUM 500 MG TABLET.DR PO SCH ×2 (09:00→17:00)
[2023-09-22 10:23] LABS: CALCIUM, SERUM 8.7 mg/dL (8.5-10.1); CREATININE 0.8 mg/dL (0.6-1.3)
[2023-09-22 10:34] LABS: BILIRUBIN,TOTAL 0.8 mg/dL (0.2-1.0); TOTAL PROTEIN, SERUM 6.9 g/dL (6.4-8.2)
[2023-09-22 10:53] LABS: ALBUMIN 1.2 g/dL (3.4-5.0)
[2023-09-22 11:25] LABS: BASOPHILS % (AUTO) 0.2 % (0.0-2.0); EOSINOPHILS % (AUTO) 0.2 % (0.0-6.0); HEMATOCRIT 34 % (39-51); HEMOGLOBIN 11.2 g/dL (13.5-17.5); LYMPHOCYTES # (AUTO) 0.8 K/uL (0.8-4.8); MEAN CORPUSCULAR HEMOGLOBIN 28 PG (26.0-33.0); MEAN CORPUSCULAR HGB CONC 33 g/dl (31.0-36.0); MEAN CORPUSCULAR VOLUME 85 fL (80-96); MONOCYTES # (AUTO) 0.7 K/uL (0.1-1.30); MONOCYTES % (AUTO) 6.7 % (2.0-12.0); NEUTROPHILS # (AUTO) 8.9 K/uL (1.8-8.9); NEUTROPHILS % (AUTO) 84.9 % (43.0-81.0); PLATELET COUNT (AUTO) 138 K/uL (150-450); RED BLOOD CELL COUNT(AUTO) 3.96 MIL/uL (4.5-6.0); RED CELL DISTRIBUTION WIDTH 27.9 % (11.5-15.0); WHITE BLOOD COUNT (AUTO) 10.5 K/uL (4.3-11.0)
[2023-09-22] MEDS: BACITRACIN ZINC OINT (15 GM) 15 GM TUBE TP SCH ×2 (12:50→17:44)
[2023-09-22] MEDS: ATORVASTATIN 10 MG TABLET PO SCH (17:31)
[2023-09-22] MEDS: DAKINS QUARTER STRENGTH (0.125%) 480 ML BOTTLE TOP SCH (23:01)
[2023-09-23] VITALS: BP 141/61; TEMP 97.5; O2SAT 95
[2023-09-23] MEDS: MIDODRINE HCL (5MG) 5 MG TABLET PO SCH ×3 (05:31→21:00)
[2023-09-23] MEDS: VANCOMYCIN HCL 0.75 GM in IV D5W 250 ML IV SCH ×2 (06:00→17:28)
[2023-09-23 07:30] VITALS: BP 125/75; TEMP 97.5; O2SAT 99
[2023-09-23] MEDS: PROSOURCE / PROSTAT (PYXIS) 30 ML UDC PO SCH ×3 (08:00→17:00)
[2023-09-23] MEDS: PANTOPRAZOLE 40 MG TABLET.DR PO SCH (08:05)
[2023-09-23] MEDS: DIVALPROEX SODIUM 500 MG TABLET.DR PO SCH ×2 (08:05→17:00)
[2023-09-23] MEDS: ASPIRIN 81 MG TAB.CHEW PO SCH (08:05)
[2023-09-23] MEDS: DAKINS QUARTER STRENGTH (0.125%) 480 ML BOTTLE TOP SCH ×2 (08:06)
[2023-09-23] MEDS: SENNOSIDES/DOCUSATE SODIUM 1 TAB TABLET PO SCH ×2 (08:06→17:00)
[2023-09-23] MEDS: BACITRACIN ZINC OINT (15 GM) 15 GM TUBE TP SCH ×2 (08:07→17:00)
[2023-09-23] MEDS ORDERED: IV D5 LR 500 ML IV ONE (10:00)
[2023-09-23 11:23] LABS: CREATININE 0.8 mg/dL (0.6-1.3); POTASSIUM 4.2 mmol/L (3.5-5.1)
[2023-09-23 11:30] LABS: BILIRUBIN,TOTAL 1.2 mg/dL (0.2-1.0); TOTAL PROTEIN, SERUM 7.1 g/dL (6.4-8.2)
[2023-09-23 11:35] LABS: BASOPHILS % (AUTO) 0.1 % (0.0-2.0); EOSINOPHILS % (AUTO) 0.1 % (0.0-6.0); HEMATOCRIT 35 % (39-51); HEMOGLOBIN 11.4 g/dL (13.5-17.5); LYMPHOCYTES # (AUTO) 0.8 K/uL (0.8-4.8); LYMPHOCYTES % (AUTO) 5.9 % (20.0-44.0); MEAN CORPUSCULAR HEMOGLOBIN 28 PG (26.0-33.0); MEAN CORPUSCULAR HGB CONC 33 g/dl (31.0-36.0); MEAN CORPUSCULAR VOLUME 86 fL (80-96); MONOCYTES # (AUTO) 0.9 K/uL (0.1-1.30); MONOCYTES % (AUTO) 6.8 % (2.0-12.0); NEUTROPHILS % (AUTO) 87.1 % (43.0-81.0); PLATELET COUNT (AUTO) 179 K/uL (150-450); RED BLOOD CELL COUNT(AUTO) 4.08 MIL/uL (4.5-6.0); RED CELL DISTRIBUTION WIDTH 28.3 % (11.5-15.0); WHITE BLOOD COUNT (AUTO) 13.8 K/uL (4.3-11.0)
[2023-09-23 11:38] LABS: ALBUMIN 1.2 g/dL (3.4-5.0)
[2023-09-23 12:00] VITALS: BP 129/68; TEMP 97.2; O2SAT 99
[2023-09-23 16:00] VITALS: BP 114/75; TEMP 98.2; O2SAT 94
[2023-09-23] MEDS: ATORVASTATIN 10 MG TABLET PO SCH (18:00)
[2023-09-23 20:45] VITALS: BP 118/65; TEMP 98.1; O2SAT 94
[2023-09-24 00:12] VITALS: BP 141/65; TEMP 97.7; O2SAT 95
[2023-09-24] MEDS: IV NS 0.9% 250 ML IV PRN (03:54)
[2023-09-24 05:29] VITALS: BP 100/55; TEMP 97.8; O2SAT 97
[2023-09-24] MEDS: MIDODRINE HCL (5MG) 5 MG TABLET PO SCH ×3 (05:40→21:58)
[2023-09-24 07:30] VITALS: BP 111/94; TEMP 97.5; O2SAT 94
[2023-09-24 07:33] LABS: BASOPHILS % (AUTO) 0.2 % (0.0-2.0); EOSINOPHILS % (AUTO) 0.1 % (0.0-6.0); HEMATOCRIT 35 % (39-51); HEMOGLOBIN 11.3 g/dL (13.5-17.5); LYMPHOCYTES # (AUTO) 0.9 K/uL (0.8-4.8); LYMPHOCYTES % (AUTO) 5.9 % (20.0-44.0); MEAN CORPUSCULAR HEMOGLOBIN 28 PG (26.0-33.0); MEAN CORPUSCULAR HGB CONC 32 g/dl (31.0-36.0); MEAN CORPUSCULAR VOLUME 85 fL (80-96); MONOCYTES # (AUTO) 1.1 K/uL (0.1-1.30); MONOCYTES % (AUTO) 7.1 % (2.0-12.0); NEUTROPHILS # (AUTO) 12.9 K/uL (1.8-8.9); NEUTROPHILS % (AUTO) 86.7 % (43.0-81.0); PLATELET COUNT (AUTO) 178 K/uL (150-450); RED CELL DISTRIBUTION WIDTH 27.6 % (11.5-15.0); WHITE BLOOD COUNT (AUTO) 14.8 K/uL (4.3-11.0)
[2023-09-24 08:43] LABS: CALCIUM, SERUM 9.1 mg/dL (8.5-10.1); POTASSIUM 4.2 mmol/L (3.5-5.1)
[2023-09-24 08:49] LABS: BILIRUBIN,TOTAL 1.3 mg/dL (0.2-1.0)
[2023-09-24] MEDS: ASPIRIN 81 MG TAB.CHEW PO SCH (09:00)
[2023-09-24] MEDS: SENNOSIDES/DOCUSATE SODIUM 1 TAB TABLET PO SCH ×2 (09:00→17:00)
[2023-09-24] MEDS: DIVALPROEX SODIUM 500 MG TABLET.DR PO SCH ×2 (09:00→17:00)
[2023-09-24] MEDS: DAKINS QUARTER STRENGTH (0.125%) 480 ML BOTTLE TOP SCH ×2 (09:00→09:52)
[2023-09-24] MEDS: PANTOPRAZOLE 40 MG TABLET.DR PO SCH (09:00)
[2023-09-24] MEDS: PROSOURCE / PROSTAT (PYXIS) 30 ML UDC PO SCH ×3 (09:01→17:00)
[2023-09-24 09:11] LABS: ALBUMIN 1.2 g/dL (3.4-5.0)
[2023-09-24] MEDS: BACITRACIN ZINC OINT (15 GM) 15 GM TUBE TP SCH ×2 (09:52→17:00)
[2023-09-24] MEDS ORDERED: SILVER NITRATE APPLICATOR 1 EA BOX TP SCH (10:00)
[2023-09-24] MEDS ORDERED: LIDOCAINE 1%-EPI 1:100,000 20 ML VIAL TP ONE (10:00)
[2023-09-24] MEDS ORDERED: IV D5/0.45 NACL 1,000 ML IV PRN (14:30)
[2023-09-24 16:00] VITALS: BP 117/59; TEMP 97.7; O2SAT 94
[2023-09-24] MEDS ORDERED: JEVITY 1.2 CAL 1,000 ML BOTTLE GT PRN (18:00)
[2023-09-24] MEDS: ATORVASTATIN 10 MG TABLET PO SCH (18:00)
[2023-09-25] MEDS: MIDODRINE HCL (5MG) 5 MG TABLET PO SCH ×3 (05:00→21:00)
[2023-09-25] MEDS: VANCOMYCIN HCL 0.75 GM in IV D5W 250 ML IV SCH (05:20)
[2023-09-25] MEDS ORDERED: JEVITY 1.2 CAL 1,000 ML BOTTLE GT PRN (08:00)
[2023-09-25] MEDS: PANTOPRAZOLE 40 MG TABLET.DR PO SCH (08:40)
[2023-09-25] MEDS: ASPIRIN 81 MG TAB.CHEW PO SCH (08:40)
[2023-09-25] MEDS: DIVALPROEX SODIUM 500 MG TABLET.DR PO SCH ×2 (08:41→16:38)
[2023-09-25] MEDS: SENNOSIDES/DOCUSATE SODIUM 1 TAB TABLET PO SCH ×2 (08:41→16:37)
[2023-09-25] MEDS: PROSOURCE / PROSTAT (PYXIS) 30 ML UDC PO SCH ×3 (08:41→16:37)
[2023-09-25] MEDS: DAKINS QUARTER STRENGTH (0.125%) 480 ML BOTTLE TOP SCH ×2 (09:00→09:51)
[2023-09-25 09:07] VITALS: BP 99/42; TEMP 98.4; O2SAT 99
[2023-09-25] MEDS: BACITRACIN ZINC OINT (15 GM) 15 GM TUBE TP SCH ×2 (09:51→17:56)
[2023-09-25 10:20] LABS: CREATININE 1.1 mg/dL (0.6-1.3); POTASSIUM 4.4 mmol/L (3.5-5.1)
[2023-09-25 10:24] LABS: BASOPHILS # (AUTO) 0.1 K/uL (0.0-0.2); BASOPHILS % (AUTO) 0.4 % (0.0-2.0); HEMATOCRIT 34 % (39-51); HEMOGLOBIN 10.9 g/dL (13.5-17.5); LYMPHOCYTES # (AUTO) 0.6 K/uL (0.8-4.8); LYMPHOCYTES % (AUTO) 3.9 % (20.0-44.0); MEAN CORPUSCULAR HEMOGLOBIN 28 PG (26.0-33.0); MEAN CORPUSCULAR HGB CONC 32 g/dl (31.0-36.0); MEAN CORPUSCULAR VOLUME 88 fL (80-96); MONOCYTES # (AUTO) 1.4 K/uL (0.1-1.30); MONOCYTES % (AUTO) 8.8 % (2.0-12.0); NEUTROPHILS # (AUTO) 13.9 K/uL (1.8-8.9); NEUTROPHILS % (AUTO) 86.9 % (43.0-81.0); PLATELET COUNT (AUTO) 116 K/uL (150-450); RED BLOOD CELL COUNT(AUTO) 3.86 MIL/uL (4.5-6.0); RED CELL DISTRIBUTION WIDTH 28.4 % (11.5-15.0)
[2023-09-25 10:26] LABS: BILIRUBIN,TOTAL 1.4 mg/dL (0.2-1.0); TOTAL PROTEIN, SERUM 6.5 g/dL (6.4-8.2)
[2023-09-25 10:43] LABS: ALBUMIN 1.1 g/dL (3.4-5.0)
[2023-09-25 13:42] VITALS: BP_SYST 107; TEMP 97.7; O2SAT 99
[2023-09-25 16:47] VITALS: BP 104/61; TEMP 97.8; O2SAT 98
[2023-09-25] MEDS: ATORVASTATIN 10 MG TABLET PO SCH ×2 (17:04→18:00)
[2023-09-25] MEDS: IV D5/0.45 NACL 1,000 ML IV PRN (18:15)
[2023-09-25 20:00] VITALS: BP 122/68; TEMP 97.6; O2SAT 94
[2023-09-26] VITALS (49 sets, daily range): BP systolic 80–135; BP diastolic 35–95; TEMP 97.5–98; O2SAT 93–100
[2023-09-26] MEDS: IPRATROPIUM NEB FS 0.5 MG/2.5 ML AMPUL.NEB NEB PRN (00:38)
[2023-09-26] MEDS: ALBUTEROL FS 2.5 MG/3 ML VIAL.NEB NEB PRN (00:38)
[2023-09-26] MEDS ORDERED: CEFEPIME 2 GM in IV D5W 100 ML IV SCH (01:00)
[2023-09-26] MEDS ORDERED: FUROSEMIDE 20 MG/2 ML VIAL IV SCH (01:00)
[2023-09-26] MEDS ORDERED: CEFEPIME 1 GM VIAL ONE (01:22)
[2023-09-26] MEDS: IV D5/0.45 NACL 1,000 ML IV PRN ×2 (01:31→11:54)
[2023-09-26 01:56] LABS: BASOPHILS # (AUTO) 0.4 K/uL (0.0-0.2); BASOPHILS % (AUTO) 1.6 % (0.0-2.0); EOSINOPHILS # (AUTO) 0.2 K/uL (0.0-0.7); EOSINOPHILS % (AUTO) 0.8 % (0.0-6.0); HEMATOCRIT 38 % (39-51); LYMPHOCYTES # (AUTO) 0.8 K/uL (0.8-4.8); LYMPHOCYTES % (AUTO) 3.5 % (20.0-44.0); MEAN CORPUSCULAR HEMOGLOBIN 28 PG (26.0-33.0); MEAN CORPUSCULAR HGB CONC 32 g/dl (31.0-36.0); MEAN CORPUSCULAR VOLUME 90 fL (80-96); MONOCYTES # (AUTO) 0.9 K/uL (0.1-1.30); MONOCYTES % (AUTO) 3.7 % (2.0-12.0); NEUTROPHILS # (AUTO) 21.7 K/uL (1.8-8.9); NEUTROPHILS % (AUTO) 90.4 % (43.0-81.0); PLATELET COUNT (AUTO) 177 K/uL (150-450); RED BLOOD CELL COUNT(AUTO) 4.27 MIL/uL (4.5-6.0); RED CELL DISTRIBUTION WIDTH 28.8 % (11.5-15.0)
[2023-09-26 02:08] LABS: ALANINE AMINOTRANSFERASE 36 U/L (12-78); ALKALINE PHOSPHATASE 193 U/L (46-116); ASPARTATE AMINOTRANSFERASE 71 U/L (15-37); BILIRUBIN,TOTAL 1.4 mg/dL (0.2-1.0); CALCIUM, SERUM 9.1 mg/dL (8.5-10.1); CARBON DIOXIDE 16 mmol/L (21-32); CHLORIDE 109 mmol/L (98-107); CREATININE 1.1 mg/dL (0.6-1.3); GLUCOSE 104 mg/dL (74-106); POTASSIUM 4.4 mmol/L (3.5-5.1); SODIUM SERUM 135 mmol/L (136-145); TOTAL PROTEIN, SERUM 7.2 g/dL (6.4-8.2); UREA NITROGEN, BLOOD 35 mg/dL (7-18)
[2023-09-26 02:10] LABS: ALBUMIN 1.2 g/dL (3.4-5.0)
[2023-09-26 02:15] LABS: LACTIC ACID 2.5 mmol/L (0.4-2.0)
[2023-09-26] MEDS: MIDODRINE HCL (5MG) 5 MG TABLET PO SCH ×3 (05:00→21:11)
[2023-09-26 06:22] LABS: ABG BASE EXCESS -6.7 mmol/L; ABG OXYGEN SATURATION 96.4 % (92.0-98.5); ABG PCO2 38.7 mmHg (35.0-45.0); ABG PH 7.309 (7.350-7.450); ABG PO2 94.3 mmHg (75.0-100.0); ABG TOTAL HEMOGLOBIN 13.2 G/dL (13.5-18.0); AaDO2 182.5 mmHg; MetHb 0.1 % (0.0-1.5); O2Hb 95.3 % (94.0-97.0); SITE, ABG Right Brachial
[2023-09-26] MEDS ORDERED: ALBUMIN 25% 12.5 GM/50 ML BOTTLE IV ONE (07:00)
[2023-09-26] MEDS ORDERED: NOREPINEPHRINE 8 MG in IV NS 0.9% 242 ML IV PRN ×2 (07:00→09:00)
[2023-09-26] MEDS ORDERED: ALBUMIN 25% 12.5 GM in PREMIX 1 EA IV ONE (07:30)
[2023-09-26] MEDS: PROSOURCE / PROSTAT (PYXIS) 30 ML UDC PO SCH ×3 (08:00→17:26)
[2023-09-26] MEDS: ASPIRIN 81 MG TAB.CHEW PO SCH (11:04)
[2023-09-26] MEDS: DIVALPROEX SODIUM 500 MG TABLET.DR PO SCH ×2 (11:04→17:25)
[2023-09-26] MEDS: PANTOPRAZOLE 40 MG TABLET.DR PO SCH (11:05)
[2023-09-26] MEDS: SENNOSIDES/DOCUSATE SODIUM 1 TAB TABLET PO SCH ×2 (11:05→17:25)
[2023-09-26] MEDS: DAKINS QUARTER STRENGTH (0.125%) 480 ML BOTTLE TOP SCH ×2 (11:50)
[2023-09-26] MEDS: MEROPENEM 1 G in IV NS 0.9% 100 ML IV SCH ×2 (12:25→21:07)
[2023-09-26] MEDS: ACETAMINOPHEN 325 MG TABLET PO PRN (12:26)
[2023-09-26] MEDS: HYDROCORTISONE SOD SUCCINATE 100 MG/2 ML VIAL IV SCH ×3 (12:26→21:07)
[2023-09-26] MEDS: FLUDROCORTISONE 0.1 MG TABLET PO SCH ×2 (12:26→17:25)
[2023-09-26] MEDS: JEVITY 1.2 CAL 1,000 ML BOTTLE GT PRN (12:27)
[2023-09-26] MEDS: BACITRACIN ZINC OINT (15 GM) 15 GM TUBE TP SCH ×2 (14:10→17:26)
[2023-09-26 17:09] LABS: BILIRUBIN,DIRECT 0.6 mg/dL (0.0-0.2)
[2023-09-26] MEDS: ATORVASTATIN 10 MG TABLET PO SCH (17:25)
[2023-09-26 17:32] LABS: LACTIC ACID REFLEX 4.6 mmol/L (0.4-1.9)
[2023-09-26] MEDS: VANCOMYCIN HCL 0.75 GM in IV D5W 250 ML IV SCH (17:33)
[2023-09-26] MEDS: IV 1/2NS 1000 ML 1,000 ML IV PRN (19:00)
[2023-09-26] MEDS: NOREPINEPHRINE 8 MG in IV NS 0.9% 242 ML IV PRN (19:05)
[2023-09-27] VITALS (48 sets, daily range): BP systolic 60–152; BP diastolic 36–113; TEMP 96.9–98; O2SAT 87–100
[2023-09-27] MEDS: FLUDROCORTISONE 0.1 MG TABLET PO SCH ×4 (00:31→17:38)
[2023-09-27] MEDS: HYDROCORTISONE SOD SUCCINATE 100 MG/2 ML VIAL IV SCH ×3 (04:31→20:49)
[2023-09-27] MEDS: MIDODRINE HCL (5MG) 5 MG TABLET PO SCH ×3 (04:54→21:24)
[2023-09-27 05:06] LABS: HEMATOCRIT 34 % (39-51); HEMOGLOBIN 10.7 g/dL (13.5-17.5); LYMPHOCYTES # (AUTO) 0.4 K/uL (0.8-4.8); LYMPHOCYTES % (AUTO) 2.2 % (20.0-44.0); MEAN CORPUSCULAR HEMOGLOBIN 29 PG (26.0-33.0); MEAN CORPUSCULAR HGB CONC 32 g/dl (31.0-36.0); MEAN CORPUSCULAR VOLUME 90 fL (80-96); MONOCYTES # (AUTO) 0.9 K/uL (0.1-1.30); MONOCYTES % (AUTO) 4.6 % (2.0-12.0); NEUTROPHILS # (AUTO) 17.2 K/uL (1.8-8.9); NEUTROPHILS % (AUTO) 93.2 % (43.0-81.0); PLATELET COUNT (AUTO) 74 K/uL (150-450); RED BLOOD CELL COUNT(AUTO) 3.74 MIL/uL (4.5-6.0); RED CELL DISTRIBUTION WIDTH 28.9 % (11.5-15.0); WHITE BLOOD COUNT (AUTO) 18.5 K/uL (4.3-11.0)
[2023-09-27 05:22] LABS: BILIRUBIN,TOTAL 1.2 mg/dL (0.2-1.0); CALCIUM, SERUM 9.1 mg/dL (8.5-10.1); CREATININE 1.3 mg/dL (0.6-1.3); POTASSIUM 4.4 mmol/L (3.5-5.1); TOTAL PROTEIN, SERUM 6.4 g/dL (6.4-8.2)
[2023-09-27 05:51] LABS: ALBUMIN 1.2 g/dL (3.4-5.0)
[2023-09-27] MEDS: IV 1/2NS 1000 ML 1,000 ML IV PRN (05:59)
[2023-09-27] MEDS: MEROPENEM 1 G in IV NS 0.9% 100 ML IV SCH ×2 (08:11→20:49)
[2023-09-27] MEDS: DIVALPROEX SODIUM 500 MG TABLET.DR PO SCH ×2 (08:11→17:38)
[2023-09-27] MEDS: ASPIRIN 81 MG TAB.CHEW PO SCH (08:12)
[2023-09-27] MEDS: DAKINS QUARTER STRENGTH (0.125%) 480 ML BOTTLE TOP SCH ×2 (08:12)
[2023-09-27] MEDS: BACITRACIN ZINC OINT (15 GM) 15 GM TUBE TP SCH ×2 (08:12→17:36)
[2023-09-27] MEDS: PROSOURCE / PROSTAT (PYXIS) 30 ML UDC PO SCH ×3 (08:12→17:38)
[2023-09-27] MEDS: PANTOPRAZOLE 40 MG TABLET.DR PO SCH (08:12)
[2023-09-27] MEDS: SENNOSIDES/DOCUSATE SODIUM 1 TAB TABLET PO SCH ×2 (08:12→17:38)
[2023-09-27] MEDS ORDERED: IV NS 0.9% 1,000 ML IV ONE (09:30)
[2023-09-27 12:24] LABS: ANISOCYTOSIS 1+; BAND % (MANUAL) 4 % (0.0-5.0); BASOPHILS % (MANUAL) 0 % (0.0-2.0); EOSINOPHILS % (MANUAL) 0 % (0-4); LYMPHOCYTES % (MANUAL) 5 % (16-48); MONOCYTES % (MANUAL) 4 % (0-11.0); NEUTROPHILS % (MANUAL) 87 (42-76); PLATELET ESTIMATE DECREASED
[2023-09-27] MEDS: ATORVASTATIN 10 MG TABLET PO SCH (17:38)
[2023-09-27 20:25] LABS: ABG BASE EXCESS -6.2 mmol/L; ABG OXYGEN SATURATION 92.5 % (92.0-98.5); ABG PCO2 31.8 mmHg (35.0-45.0); ABG PH 7.373 (7.350-7.450); ABG PO2 68.6 mmHg (75.0-100.0); ABG TOTAL HEMOGLOBIN 11.4 G/dL (13.5-18.0); COHb 0.5 % (0.5-1.5); MetHb 0.1 % (0.0-1.5); O2Hb 91.9 % (94.0-97.0); SITE, ABG Right Radial; VENT MODE, BG N/C 40
[2023-09-27] MEDS: ACETAMINOPHEN 325 MG TABLET PO PRN (20:49)
[2023-09-27] MEDS: NOREPINEPHRINE 8 MG in IV NS 0.9% 242 ML IV PRN (21:44)
[2023-09-27] MEDS: PROPOFOL 100 ML IV PRN (22:27)
[2023-09-27] MEDS: ACETYLCYSTEINE 10% SOLN 400 MG/4 ML VIAL NEB SCH (23:45)
[2023-09-27] MEDS: ALBUTEROL FS 2.5 MG/3 ML VIAL.NEB NEB PRN (23:45)
[2023-09-27] MEDS: IPRATROPIUM NEB FS 0.5 MG/2.5 ML AMPUL.NEB NEB PRN (23:45)
[2023-09-28] VITALS (97 sets, daily range): BP systolic 58–126; BP diastolic 30–73; TEMP 96.2–99.2; O2SAT 96–100
[2023-09-28 00:02] LABS: ABG BASE EXCESS -12.2 mmol/L; ABG OXYGEN SATURATION 89.8 % (92.0-98.5); ABG PCO2 43.7 mmHg (35.0-45.0); ABG PH 7.176 (7.350-7.450); ABG PO2 68.7 mmHg (75.0-100.0); ABG TOTAL HEMOGLOBIN 14.3 G/dL (13.5-18.0); AaDO2 600.6 mmHg; COHb 0.5 % (0.5-1.5); MetHb 0.3 % (0.0-1.5); O2Hb 89.1 % (94.0-97.0); SITE, ABG Right Radial
[2023-09-28 00:02] LABS: ABG BASE EXCESS -11.7 mmol/L; ABG OXYGEN SATURATION 88.6 % (92.0-98.5); ABG PO2 85.3 mmHg (75.0-100.0); ABG TOTAL HEMOGLOBIN 13.7 G/dL (13.5-18.0); AaDO2 566.7 mmHg; COHb 0.6 % (0.5-1.5); MetHb 0.3 % (0.0-1.5); O2Hb 87.8 % (94.0-97.0); SITE, ABG Right Radial; VENT MODE, BG NRB 100
[2023-09-28] MEDS: FLUDROCORTISONE 0.1 MG TABLET PO SCH ×2 (00:51→05:13)
[2023-09-28] MEDS: NOREPINEPHRINE 8 MG in IV NS 0.9% 242 ML IV PRN ×7 (01:34→17:52)
[2023-09-28 04:37] LABS: BASOPHILS % (AUTO) 0.4 % (0.0-2.0); EOSINOPHILS % (AUTO) 0.1 % (0.0-6.0); HEMATOCRIT 41 % (39-51); HEMOGLOBIN 12.6 g/dL (13.5-17.5); LYMPHOCYTES # (AUTO) 0.6 K/uL (0.8-4.8); MEAN CORPUSCULAR HEMOGLOBIN 29 PG (26.0-33.0); MEAN CORPUSCULAR HGB CONC 31 g/dl (31.0-36.0); MEAN CORPUSCULAR VOLUME 92 fL (80-96); MONOCYTES # (AUTO) 0.7 K/uL (0.1-1.30); MONOCYTES % (AUTO) 6.9 % (2.0-12.0); NEUTROPHILS # (AUTO) 8.4 K/uL (1.8-8.9); NEUTROPHILS % (AUTO) 86.6 % (43.0-81.0); PLATELET COUNT (AUTO) 95 K/uL (150-450); RED BLOOD CELL COUNT(AUTO) 4.42 MIL/uL (4.5-6.0); RED CELL DISTRIBUTION WIDTH 29.5 % (11.5-15.0); WHITE BLOOD COUNT (AUTO) 9.7 K/uL (4.3-11.0)
[2023-09-28 04:44] LABS: CALCIUM, SERUM 9.2 mg/dL (8.5-10.1); CARBON DIOXIDE 15 mmol/L (21-32); CHLORIDE 107 mmol/L (98-107); CREATININE 1.5 mg/dL (0.6-1.3); GLUCOSE 109 mg/dL (74-106); POTASSIUM 4.5 mmol/L (3.5-5.1); SODIUM SERUM 134 mmol/L (136-145); UREA NITROGEN, BLOOD 46 mg/dL (7-18)
[2023-09-28] MEDS: MIDODRINE HCL (5MG) 5 MG TABLET PO SCH (05:13)
[2023-09-28] MEDS: HYDROCORTISONE SOD SUCCINATE 100 MG/2 ML VIAL IV SCH (05:13)
[2023-09-28] MEDS: VANCOMYCIN HCL 0.75 GM in IV D5W 250 ML IV SCH (05:13)
[2023-09-28 07:09] LABS: BAND % (MANUAL) 13 % (0.0-5.0); LYMPHOCYTES % (MANUAL) 9 % (16-48); METAMYELOCYTES % 2 % (0-0); MONOCYTES % (MANUAL) 6 % (0-11.0); MYELOCYTES % 1 % (0-0); NEUTROPHILS % (MANUAL) 69 (42-76); PLATELET ESTIMATE DECREASED
[2023-09-28 07:10] LABS: ANISOCYTOSIS 1+
[2023-09-28] MEDS: ACETYLCYSTEINE 10% SOLN 400 MG/4 ML VIAL NEB SCH ×3 (07:35→23:42)
[2023-09-28] MEDS: ASPIRIN 81 MG TAB.CHEW PO SCH (08:19)
[2023-09-28] MEDS: PROSOURCE / PROSTAT (PYXIS) 30 ML UDC PO SCH ×3 (08:19→17:15)
[2023-09-28] MEDS: DIVALPROEX SODIUM 500 MG TABLET.DR PO SCH (08:19)
[2023-09-28] MEDS: PANTOPRAZOLE 40 MG TABLET.DR PO SCH (08:19)
[2023-09-28] MEDS: SENNOSIDES/DOCUSATE SODIUM 1 TAB TABLET PO SCH ×2 (08:19→17:14)
[2023-09-28] MEDS: MEROPENEM 1 G in IV NS 0.9% 100 ML IV SCH ×2 (08:19→20:39)
[2023-09-28] MEDS: BACITRACIN ZINC OINT (15 GM) 15 GM TUBE TP SCH ×2 (08:20→17:15)
[2023-09-28] MEDS: DAKINS QUARTER STRENGTH (0.125%) 480 ML BOTTLE TOP SCH ×2 (08:20)
[2023-09-28] MEDS: JEVITY 1.2 CAL 1,000 ML BOTTLE GT PRN (08:21)
[2023-09-28] MEDS ORDERED: PHARMACY TO CHANGE PO MEDS TO GT/NG XX PRN (08:30)
[2023-09-28 08:34] LABS: ABG OXYGEN SATURATION 91.5 % (92.0-98.5); ABG PCO2 46.3 mmHg (35.0-45.0); ABG PH 7.087 (7.350-7.450); ABG TOTAL HEMOGLOBIN 14.2 G/dL (13.5-18.0); AaDO2 591.7 mmHg; COHb 0.6 % (0.5-1.5); MetHb 0.2 % (0.0-1.5); O2Hb 90.8 % (94.0-97.0); SITE, ABG Right Radial; VENT MODE, BG AC 22 500 100
[2023-09-28] MEDS ORDERED: VALPROIC ACID 250 MG/5 ML UDC PO SCH (08:42)
[2023-09-28] MEDS ORDERED: FLUDROCORTISONE 0.1 MG TABLET GT SCH (08:45)
[2023-09-28] MEDS: ASPIRIN 81 MG TAB.CHEW GT SCH (08:51)
[2023-09-28] MEDS: PANTOPRAZOLE 40 MG/PACK PACK GT SCH (08:53)
[2023-09-28] MEDS ORDERED: ACETAMINOPHEN 650 MG/20.3 ML UDC GT PRN (09:00)
[2023-09-28] MEDS: VALPROIC ACID 250 MG/5 ML UDC GT SCH ×2 (09:00→17:15)
[2023-09-28] MEDS: PROPOFOL 100 ML IV PRN ×2 (10:33→17:51)
[2023-09-28] MEDS ORDERED: PROPOFOL 200 MG/20 ML VIAL IV ONE ×2 (11:00→11:15)
[2023-09-28] MEDS ORDERED: SUCCINYLCHOLINE CHLORIDE 20 MG/ML VIAL IV ONE (11:15)
[2023-09-28] MEDS: IV D5 LR 1,000 ML IV SCH (11:37)
[2023-09-28] MEDS: MIDODRINE HCL (5MG) 5 MG TABLET GT SCH ×2 (12:04→20:39)
[2023-09-28] MEDS: ATORVASTATIN 10 MG TABLET PO SCH (17:14)
[2023-09-28] MEDS: NOREPINEPHRINE 32 MG in IV NS 0.9% 218 ML IV PRN (18:12)
[2023-09-29] VITALS (57 sets, daily range): BP systolic 77–109; BP diastolic 43–67; TEMP 97.7–98.7; O2SAT 89–99
[2023-09-29] MEDS: NOREPINEPHRINE 32 MG in IV NS 0.9% 218 ML IV PRN ×3 (02:33→18:57)
[2023-09-29 04:21] LABS: BASOPHILS # (AUTO) 0.2 K/uL (0.0-0.2); BASOPHILS % (AUTO) 0.9 % (0.0-2.0); HEMATOCRIT 40 % (39-51); HEMOGLOBIN 12.2 g/dL (13.5-17.5); LYMPHOCYTES # (AUTO) 0.8 K/uL (0.8-4.8); LYMPHOCYTES % (AUTO) 2.8 % (20.0-44.0); MEAN CORPUSCULAR HEMOGLOBIN 28 PG (26.0-33.0); MEAN CORPUSCULAR HGB CONC 31 g/dl (31.0-36.0); MEAN CORPUSCULAR VOLUME 93 fL (80-96); MONOCYTES # (AUTO) 0.9 K/uL (0.1-1.30); MONOCYTES % (AUTO) 3.1 % (2.0-12.0); NEUTROPHILS # (AUTO) 26.7 K/uL (1.8-8.9); NEUTROPHILS % (AUTO) 93.2 % (43.0-81.0); RED CELL DISTRIBUTION WIDTH 29.6 % (11.5-15.0); WHITE BLOOD COUNT (AUTO) 28.7 K/uL (4.3-11.0)
[2023-09-29 04:42] LABS: CALCIUM, SERUM 9.2 mg/dL (8.5-10.1); CARBON DIOXIDE 13 mmol/L (21-32); CHLORIDE 104 mmol/L (98-107); CREATININE 1.7 mg/dL (0.6-1.3); GLUCOSE 81 mg/dL (74-106); POTASSIUM 4.8 mmol/L (3.5-5.1); SODIUM SERUM 132 mmol/L (136-145); UREA NITROGEN, BLOOD 48 mg/dL (7-18)
[2023-09-29] MEDS: MIDODRINE HCL (5MG) 5 MG TABLET GT SCH ×3 (05:08→21:52)
[2023-09-29] MEDS: PROPOFOL 100 ML IV PRN ×2 (05:14→14:41)
[2023-09-29 05:49] LABS: PLATELET COUNT (AUTO) 39 K/uL (150-450)
[2023-09-29] MEDS: IV D5 LR 1,000 ML IV SCH (06:58)
[2023-09-29] MEDS ORDERED: LIDOCAINE 1%-EPI 1:100,000 20 ML VIAL TP ONE (07:00)
[2023-09-29] MEDS ORDERED: SILVER NITRATE APPLICATOR 1 EA BOX TP SCH (07:00)
[2023-09-29] MEDS: ACETYLCYSTEINE 10% SOLN 400 MG/4 ML VIAL NEB SCH ×3 (08:09→23:55)
[2023-09-29] MEDS: ASPIRIN 81 MG TAB.CHEW GT SCH (09:00)
[2023-09-29] MEDS: DAKINS QUARTER STRENGTH (0.125%) 480 ML BOTTLE TOP SCH ×2 (09:00→09:17)
[2023-09-29] MEDS: SENNOSIDES/DOCUSATE SODIUM 1 TAB TABLET PO SCH ×2 (09:16→17:00)
[2023-09-29] MEDS: VALPROIC ACID 250 MG/5 ML UDC GT SCH ×2 (09:16→17:33)
[2023-09-29] MEDS: PANTOPRAZOLE 40 MG/PACK PACK GT SCH (09:17)
[2023-09-29] MEDS: MEROPENEM 1 G in IV NS 0.9% 100 ML IV SCH ×2 (09:17→21:50)
[2023-09-29] MEDS: BACITRACIN ZINC OINT (15 GM) 15 GM TUBE TP SCH ×2 (09:17→17:34)
[2023-09-29] MEDS: PROSOURCE / PROSTAT (PYXIS) 30 ML UDC PO SCH ×3 (09:19→17:00)
[2023-09-29 13:04] LABS: BAND % (MANUAL) 39 % (0.0-5.0); LYMPHOCYTES % (MANUAL) 3 % (16-48); NEUTROPHILS % (MANUAL) 35 (42-76)
[2023-09-29 13:05] LABS: ANISOCYTOSIS 1+; METAMYELOCYTES % 11 % (0-0); MONOCYTES % (MANUAL) 4 % (0-11.0); MYELOCYTES % 8 % (0-0); PLATELET ESTIMATE DECREASED
[2023-09-29 13:06] LABS: HYPOCHROMASIA 1+; OVALOCYTES 1+; SMUDGE CELLS 1+
[2023-09-29] MEDS ORDERED: Sodium Bicarbonate 100 MEQ in IV D5 / 0.2% NACL 1,000 ML IV SCH (16:00)
[2023-09-29] MEDS: VANCOMYCIN HCL 0.75 GM in IV D5W 250 ML IV SCH (17:33)
[2023-09-29] MEDS: ATORVASTATIN 10 MG TABLET PO SCH (17:33)
[2023-09-29] MEDS: FUROSEMIDE 40 MG/4 ML VIAL IV SCH (17:35)
[2023-09-29] MEDS: METOCLOPRAMIDE HCL 10 MG/2 ML VIAL IV SCH ×2 (17:38→21:51)
[2023-09-30] VITALS (75 sets, daily range): BP systolic 44–109; BP diastolic 13–64; TEMP 97.8–98.5; O2SAT 85–100
[2023-09-30] MEDS: NOREPINEPHRINE 32 MG in IV NS 0.9% 218 ML IV PRN ×3 (02:43→14:27)
[2023-09-30 04:18] LABS: BASOPHILS % (AUTO) 0.1 % (0.0-2.0); EOSINOPHILS % (AUTO) 0.1 % (0.0-6.0); HEMATOCRIT 36 % (39-51); HEMOGLOBIN 11.2 g/dL (13.5-17.5); LYMPHOCYTES # (AUTO) 0.6 K/uL (0.8-4.8); LYMPHOCYTES % (AUTO) 1.7 % (20.0-44.0); MEAN CORPUSCULAR HEMOGLOBIN 29 PG (26.0-33.0); MEAN CORPUSCULAR HGB CONC 31 g/dl (31.0-36.0); MEAN CORPUSCULAR VOLUME 93 fL (80-96); MONOCYTES # (AUTO) 1.2 K/uL (0.1-1.30); MONOCYTES % (AUTO) 3.4 % (2.0-12.0); NEUTROPHILS # (AUTO) 33.2 K/uL (1.8-8.9); NEUTROPHILS % (AUTO) 94.7 % (43.0-81.0); RED CELL DISTRIBUTION WIDTH 29.8 % (11.5-15.0)
[2023-09-30 04:35] LABS: PLATELET COUNT (AUTO) 41 K/uL (150-450)
[2023-09-30 04:54] LABS: ANISOCYTOSIS 1+; BAND % (MANUAL) 30 % (0.0-5.0); BASOPHILS % (MANUAL) 0 % (0.0-2.0); EOSINOPHILS % (MANUAL) 0 % (0-4); HYPOCHROMASIA 1+; LYMPHOCYTES % (MANUAL) 8 % (16-48); METAMYELOCYTES % 10 % (0-0); MONOCYTES % (MANUAL) 6 % (0-11.0); MYELOCYTES % 5 % (0-0); NEUTROPHILS % (MANUAL) 41 (42-76); OVALOCYTES 1+; PLATELET ESTIMATE DECREASED
[2023-09-30] MEDS: METOCLOPRAMIDE HCL 10 MG/2 ML VIAL IV SCH ×2 (05:41→13:51)
[2023-09-30] MEDS: MIDODRINE HCL (5MG) 5 MG TABLET GT SCH ×2 (05:42→13:00)
[2023-09-30] MEDS: ACETYLCYSTEINE 10% SOLN 400 MG/4 ML VIAL NEB SCH ×2 (07:35→15:30)
[2023-09-30] MEDS ORDERED: VITAL AF 1.2 1,000 ML BOTTLE GT PRN (08:30)
[2023-09-30] MEDS: ASPIRIN 81 MG TAB.CHEW GT SCH (09:00)
[2023-09-30] MEDS: DAKINS QUARTER STRENGTH (0.125%) 480 ML BOTTLE TOP SCH ×2 (09:00→10:17)
[2023-09-30 09:49] LABS: CALCIUM, SERUM 8.9 mg/dL (8.5-10.1); CARBON DIOXIDE 11 mmol/L (21-32); CHLORIDE 105 mmol/L (98-107); CREATININE 2.1 mg/dL (0.6-1.3); SODIUM SERUM 133 mmol/L (136-145); UREA NITROGEN, BLOOD 54 mg/dL (7-18)
[2023-09-30] MEDS ORDERED: SODIUM BICARBONATE SYR 50 MEQ/50 ML DISP.SYRIN IV ONE (10:00)
[2023-09-30] MEDS ORDERED: Sodium Bicarbonate 150 MEQ in IV D5 / 0.2% NACL 1,000 ML IV SCH (10:00)
[2023-09-30 10:08] LABS: GLUCOSE 41 mg/dL (74-106)
[2023-09-30] MEDS: FUROSEMIDE 40 MG/4 ML VIAL IV SCH ×2 (10:15→17:00)
[2023-09-30] MEDS: PROPOFOL 100 ML IV PRN (10:15)
[2023-09-30] MEDS: PANTOPRAZOLE 40 MG/PACK PACK GT SCH (10:16)
[2023-09-30] MEDS: VALPROIC ACID 250 MG/5 ML UDC GT SCH ×2 (10:16→17:00)
[2023-09-30] MEDS: SENNOSIDES/DOCUSATE SODIUM 1 TAB TABLET PO SCH ×2 (10:16→17:00)
[2023-09-30] MEDS: PROSOURCE / PROSTAT (PYXIS) 30 ML UDC PO SCH ×3 (10:18→17:00)
[2023-09-30] MEDS: BACITRACIN ZINC OINT (15 GM) 15 GM TUBE TP SCH ×2 (10:18→17:30)
[2023-09-30] MEDS: MEROPENEM 1 G in IV NS 0.9% 100 ML IV SCH (10:23)
[2023-09-30] MEDS ORDERED: DEXTROSE 50%-WATER 50 ML DISP.SYRIN IVP STA ×2 (10:23→18:08)
[2023-09-30] MEDS: PHENYLEPHRINE 100 MG in IV NS 0.9% 240 ML IV PRN ×2 (11:24→17:58)
[2023-09-30] MEDS ORDERED: VASOPRESSIN INJ 40 UNIT in IV NS 0.9% 38 ML IV PRN (11:30)
[2023-09-30] MEDS ORDERED: IV NS 0.9% 500 ML IV ONE (16:45)
[2023-09-30] MEDS: ATORVASTATIN 10 MG TABLET PO SCH (17:26)
[2023-09-30] MEDS ORDERED: IV NS 0.9% 1,000 ML IV ONE (18:00)
[2023-09-30 18:47] LABS: CREATININE, URINE 105.8 MG/DL (30.0-125.0); URINE TOTAL PROTEIN 123.8 mg/dL (0-11.9)
[2023-10-01 04:00] LABS: ABG BASE EXCESS -14.4 mmol/L; ABG OXYGEN SATURATION 90.8 % (92.0-98.5); ABG PCO2 32.3 mmHg (35.0-45.0); ABG PH 7.201 (7.350-7.450); ABG PO2 67.8 mmHg (75.0-100.0); ABG TOTAL HEMOGLOBIN 13.5 G/dL (13.5-18.0); AaDO2 612.9 mmHg; COHb 0.9 % (0.5-1.5); MetHb 0.2 % (0.0-1.5); O2Hb 89.8 % (94.0-97.0); PEEP,BG 5 cm H2O; SITE, ABG Right Radial; VT, ABG 550 mL
== END 2023-09-30 22:32 | DRG 853 ==
LOC: ER 17:42 → ICU 22:23 → MED 09-22 03:42 → TELE 09-22 04:02 → ICU 09-23 11:07 → TELE 09-23 12:57 → ICU 09-24 10:28 → TELE 09-24 13:38 → ICU 09-26 09:01
PROVIDERS: ADMIT Nurse Practitioner Acute Care; ATTEND Nurse Practitioner Acute Care
PROC: 05HC33Z Insertion of Infusion Device into Left Basilic Vein, Percutaneous Approach (ICD-10-PCS; 2023-09-13)
PROC: 0JBQ0ZZ Excision of Right Foot Subcutaneous Tissue and Fascia, Open Approach (ICD-10-PCS; principal; 2023-09-22)
PROC: 0JBR0ZZ Excision of Left Foot Subcutaneous Tissue and Fascia, Open Approach (ICD-10-PCS; 2023-09-22)
PROC: 05HM33Z Insertion of Infusion Device into Right Internal Jugular Vein, Percutaneous Approach (ICD-10-PCS; 2023-09-27)
PROC: B543ZZA Ultrasonography of Right Jugular Veins, Guidance (ICD-10-PCS; 2023-09-27)
PROC: 0BH18EZ Insertion of Endotracheal Airway into Trachea, Via Natural or Artificial Opening Endoscopic (ICD-10-PCS; 2023-09-27)
PROC: 5A1945Z Respiratory Ventilation, 24-96 Consecutive Hours (ICD-10-PCS; 2023-09-28)
DX: A41.02 Sepsis due to Methicillin resistant Staphylococcus aureus (principal); E43 Unspecified severe protein-calorie malnutrition; I21.A1 Myocardial infarction type 2; J96.01 Acute respiratory failure with hypoxia; J15.9 Unspecified bacterial pneumonia; G93.41 Metabolic encephalopathy; R65.21 Severe sepsis with septic shock; J96.02 Acute respiratory failure with hypercapnia; N17.0 Acute kidney failure with tubular necrosis; I50.32 Chronic diastolic (congestive) heart failure; N39.0 Urinary tract infection, site not specified; E87.20 Acidosis, unspecified; L97.429 Non-pressure chronic ulcer of left heel and midfoot with unspecified severity; E87.1 Hypo-osmolality and hyponatremia; D68.59 Other primary thrombophilia; J90 Pleural effusion, not elsewhere classified; K74.60 Unspecified cirrhosis of liver; Z95.0 Presence of cardiac pacemaker; I11.0 Hypertensive heart disease with heart failure; E86.0 Dehydration; R74.01 Elevation of levels of liver transaminase levels; S90.822A Blister (nonthermal), left foot, initial encounter; X58.XXXA Exposure to other specified factors, initial encounter; Y92.9 Unspecified place or not applicable; E88.09 Other disorders of plasma-protein metabolism, not elsewhere classified; T14.8XXA Other injury of unspecified body region, initial encounter; F03.90 Unspecified dementia, unspecified severity, without behavioral disturbance, psychotic disturbance, mood disturbance, and anxiety; Z74.09 Other reduced mobility; D64.9 Anemia, unspecified; D69.59 Other secondary thrombocytopenia; E16.2 Hypoglycemia, unspecified; Z66 Do not resuscitate; E80.6 Other disorders of bilirubin metabolism; Z79.82 Long term (current) use of aspirin; Z79.899 Other long term (current) drug therapy
CPT/HCPCS: 31720; 36410; 36415; 36569; 36600; 71045-TC; 74018; 80048-TC; 80053-TC; 80076-TC; 80202-TC; 81001; 82248-TC; 82533; 82550-TC; 82570-TC; 82803-TC; 82962-TC; 83605-TC; 83735-TC; 84100-TC; 84300-TC; 84484-TC; 85025-TC; 85730-TC; 86140-TC; 86803; 87040-TC; 87081-TC; 87086-TC; 87806; 92526; 92611-TC; 93307-TC; 94002-TC; 94003-TC; 94799-TC; 97110-TC; A4216; A4223; A4624; A6253; A6403; G0378; J0330; J0692; J1720; J1940; J2185; J2543; J2704; J2765; J3370; J3490; J7030; J7040; J7050; J7060; J7120; P9047